=== PATIENT | male | born 1960 | race Caucasian/White ===

== ENCOUNTER 2020-09-12 07:57 | Observation (INO) ==
[2020-09-12 08:58] LABS: Basophils % 0.7 %; Eosinophils # 0.1 K/mcL (0.0-0.6); Eosinophils % 2.7 %; Hematocrit 43.1 % (37.5-50.1); Hemoglobin 14.1 g/dL (12.9-16.9); Immature Granulocytes % 0.2 % (0-4); Lymphocytes # 1.4 K/mcL (0.6-4.6); Lymphocytes % 31.2 %; Mean Corpuscular HGB Conc 32.7 g/dL (31.6-35.5); Mean Corpuscular Hemoglobin 31.5 pg (28.0-33.3); Mean Corpuscular Volume 96.2 fL (83.0-100.0); Mean Platelet Volume 10.8 fL (9.4-12.4); Monocytes # 0.6 K/mcL (0.0-1.3); Neutrophils # 2.3 K/mcL (1.6-8.9); Platelet Count 185 K/mcL (140-400); Red Blood Count 4.48 M/mcL (4.19-5.50); Red Cell Distribution Width 13.8 % (11.5-14.5); Segmented Neutrophils % 52.2 %; White Blood Count 4.4 K/mcL (4.3-11.1)
[2020-09-12 09:13] LABS: Alanine Aminotransferase 22 Units/L (7-52); Albumin 4.3 g/dL (3.5-5.7); Albumin/Globulin Ratio 1.6 (1.1-2.2); Alkaline Phosphatase 67 Units/L (34-104); Aspartate Amino Transferase 29 Units/L (13-39); BUN/Creatinine Ratio 9 (6-26); Bilirubin,Direct 0.1 mg/dL (0.0-0.2); Bilirubin,Indirect 0.6 mg/dL (0.0-1.0); Bilirubin,Total 0.7 mg/dL (0.3-1.0); Blood Urea Nitrogen 9 mg/dL (8-23); Calcium 9.4 mg/dL (8.6-10.3); Carbon Dioxide 32 mEq/L (23-29); Chloride 106 mEq/L (98-107); Globulin 2.7 g/dL (2.4-3.5); Glucose 76 mg/dL (70-105); Osmolality,Calculated 293 (280-300); Potassium 3.8 mEq/L (3.5-5.1); Sodium 143 mEq/L (136-145); Troponin I < 0.03 ng/mL (< 0.04); eGFR For African Americans > 60 (> 60); eGFR For Non-African Americans > 60 (> 60)
[2020-09-12 09:50] LABS: Bilirubin,Urine Negative (Negative); Blood,Urine Negative (Negative); Clarity,Urine Clear (Clear); Color,Urine Light-Yellow (Yellow); Glucose,Urine (UA) Normal (Normal); Ketones,Urine Negative (Negative); Leukocyte Esterase,Urine Negative (Negative); Nitrite,Urine Negative (Negative); PH,Urine 6.5 pH Units (5.0-8.0); Protein,Urine Negative (Neg-Trace); Specific Gravity,Urine 1.009 (1.010-1.025)
[2020-09-12 10:20] LABS: Amphetamine Screen,Urine Negative ng/mL (Cutoff=1000); Barbiturate Screen,Urine Negative ng/mL (Cutoff=200); Benzodiazepines Screen,Urine Negative ng/mL (Cutoff=200); Cannabinoid Screen,Urine Negative ng/mL (Cutoff = 50); Cocaine Screen,Urine Negative ng/mL (Cutoff= 300); Opiate Screen,Urine Negative ng/mL (Cutoff=300); Phencyclidine Screen,Urine Negative ng/mL (Cutoff=25)
[2020-09-12] MEDS ORDERED: Perflutren Lipid Microsphere 1.3 ML in 0.9 % Sodium Chloride 8.7 ML IVP PRN (13:13)
[2020-09-12] MEDS ORDERED: Acetaminophen 325 MG TABLET PO PRN (13:41)
[2020-09-12] MEDS ORDERED: Ondansetron 4 MG/2 ML VIAL IVP PRN (13:41)
[2020-09-12] MEDS ORDERED: Naloxone 0.4 MG/ML INJ IVP PRN (13:41)
[2020-09-12 14:43] LABS: % Iron Saturation 28 % (20-55); Iron 92 mcg/dL (65-175); Transferrin 237 mg/dL (203-362)
[2020-09-12 14:57] LABS: Thyroid Stimulating Hormone 0.141 mcIU/mL (0.340-5.600)
[2020-09-12 14:59] LABS: Triiodothyronine (T3) Free 3.79 pg/mL (2.50-3.90)
[2020-09-12 15:01] LABS: Ferritin 134 ng/mL (20-250)
[2020-09-12 15:10] LABS: Folate > 22.3 ng/mL (3.0-16.0); Vitamin B12 364 pg/mL (250-1100)
[2020-09-12] MEDS: Aspirin Enteric Coated 81 MG Tablet PO SCH (15:10)
[2020-09-12] MEDS ORDERED: tiZANidine 4 MG TABLET PO PRN (17:39)
[2020-09-12] MEDS: Gabapentin 300 MG CAPSULE PO SCH (19:59)
[2020-09-12] MEDS: clonazePAM 1 MG TABLET PO PRN (20:02)
[2020-09-12] MEDS ORDERED: Melatonin 3 MG TABLET PO SCH (21:00)
[2020-09-13 03:25] LABS: Hematocrit 42.2 % (37.5-50.1); Hemoglobin 13.9 g/dL (12.9-16.9); Mean Corpuscular HGB Conc 32.9 g/dL (31.6-35.5); Mean Corpuscular Hemoglobin 31.4 pg (28.0-33.3); Mean Corpuscular Volume 95.5 fL (83.0-100.0); Mean Platelet Volume 10.9 fL (9.4-12.4); Platelet Count 184 K/mcL (140-400); Red Blood Count 4.42 M/mcL (4.19-5.50); Red Cell Distribution Width 13.5 % (11.5-14.5); White Blood Count 4.9 K/mcL (4.3-11.1)
[2020-09-13 03:45] LABS: BUN/Creatinine Ratio 16 (6-26); Blood Urea Nitrogen 15 mg/dL (8-23); Calcium 9.1 mg/dL (8.6-10.3); Carbon Dioxide 28 mEq/L (23-29); Chloride 106 mEq/L (98-107); Chol/HDL Ratio 2.7 (0-4.9); Cholesterol 113 mg/dL (< 200); Glucose 128 mg/dL (70-105); HDL Cholesterol 42 mg/dL (40-59); LDL Cholesterol,Calculated 54 mg/dL (< 100); Osmolality,Calculated 292 (280-300); Potassium 4.3 mEq/L (3.5-5.1); Sodium 140 mEq/L (136-145); Triglycerides 87 mg/dL (< 150); eGFR For African Americans > 60 (> 60); eGFR For Non-African Americans > 60 (> 60)
[2020-09-13 03:56] LABS: Estimated Average Glucose 97 mg/dl
[2020-09-13] MEDS ORDERED: ARIPiprazole 10 MG TABLET PO SCH (09:00)
[2020-09-13] MEDS ORDERED: lisinopriL 20 MG TABLET PO SCH (09:00)
[2020-09-13] MEDS: Aspirin Enteric Coated 81 MG Tablet PO SCH (14:10)
[2020-09-13] MEDS: Gabapentin 300 MG CAPSULE PO SCH ×2 (14:11→14:21)
[2020-09-13] MEDS: clonazePAM 1 MG TABLET PO PRN (14:16)
[2020-09-13 14:34] VITALS: BP 164/53
== END 2020-09-13 19:17 | disposition home or self-care (01) ==
LOC: 3BNU 07:57 → EMEROOARM 07:57 → SUATTDRO 12:42 → 3BNU 13:40
PROVIDERS: ADMIT General Practice; ATTEND Internal Medicine